=== PATIENT | male | born 1990 | race Two or more races ===

== ENCOUNTER 2018-07-25 12:46 | Inpatient (IN) | payer OTHER ==
[~2018-07-25] VITALS: Ht 170.2 cm; Wt 56.7 kg
[2018-07-25 12:55] VITALS: BP 132/90
[2018-07-25] MEDS ORDERED: SYMBICORT 16010.2 G1 IH (12:56)
[2018-07-25] MEDS ORDERED: OFEV100 MG PO (12:56)
[2018-07-25] MEDS ORDERED: VENTOLIN HFA18 GM INH (12:56)
[2018-07-25 13:20] LABS: ANION GAP 13 mmol/L (5-15); BASOPHILS % (AUTO) 0.5 % (0.0-2.0); BLOOD UREA NITROGEN 18 mg/dL (7-18); CALCIUM 9.7 MG/DL (8.5-10.1); CARBON DIOXIDE 23 MMOL/L (21-32); CHLORIDE 101 MMOL/L (98-107); CREATININE 1.3 MG/DL (0.55-1.30); EOSINOPHILS % (AUTO) 1.8 % (0.0-3.0); HEMATOCRIT 60.9 % (42.0-52.0); LYMPHOCYTES % (AUTO) 14.8 % (20.0-45.0); MEAN CORPUSCULAR VOLUME 90 FL (80-99); MONOCYTES % (AUTO) 6.1 % (1.0-10.0); NEUTROPHILS % (AUTO) 76.9 % (45.0-75.0); PLATELET COUNT 374 K/UL (150-450); POTASSIUM 4.3 MMOL/L (3.5-5.1); RED BLOOD COUNT 6.77 M/UL (4.70-6.10); RED CELL DISTRIBUTION WIDTH 12.5 % (11.6-14.8); SODIUM 137 MMOL/L (136-145); WHITE BLOOD COUNT 11.7 K/UL (4.8-10.8)
[2018-07-25 13:28] LABS: HEMOGLOBIN 20.4 G/DL (14.2-18.0)
[2018-07-25 13:34] LABS: ALANINE AMINOTRANSFERASE 40 U/L (12-78); ALBUMIN/GLOBULIN RATIO 0.6 (1.0-2.7); ALKALINE PHOSPHATASE 113 U/L (46-116); ASPARTATE AMINO TRANSFERASE 28 U/L (15-37); BILIRUBIN,TOTAL 0.8 MG/DL (0.2-1.0); CKMB 1.1 NG/ML (0.0-3.6); CREATINE KINASE 83 U/L (26-308)
[2018-07-25 14:30] VITALS: BP 110/83
[2018-07-25 14:32] LABS: APPEARANCE,URINE CLEAR; BILIRUBIN, URINE NEGATIVE (NEGATIVE); COLOR,URINE PALE YELLOW; GLUCOSE, URINE (UA) NEGATIVE (NEGATIVE); KETONES,URINE NEGATIVE (NEGATIVE); LEUKOCYTE ESTERASE ,URINE NEGATIVE (NEGATIVE); NITRITE,URINE NEGATIVE (NEGATIVE); PH,URINE 7 (4.5-8.0); PROTEIN,URINE 4+ (NEGATIVE); UROBILINOGEN,URINE NORMAL MG/DL (0.0-1.0)
--- NOTE | 2018-07-25 15:11 | Diagnostic Imaging Report ---
Indication: Shortness of breath Technique: XRAY Chest 1v Comparison: None Findings: Fibrotic changes in the bilateral apices as well as periphery of the left mid/upper lung and right lower lung. There is also fibrosis in the region of the right hilum. There is no significant pleural effusion. No pneumothorax. Size within normal limits. Abdominal shield in place. IMPRESSION: Extensive bilateral fibrotic changes, likely chronic. Difficult to assess for superimposed infection without prior radiographs for comparison and the possibility such as not excluded.. Clinical correlation/follow-up recommended. No evidence of pneumothorax.
--- NOTE | 2018-07-25 15:22 | Emergency Room Report ---
History of Present Illness General Chief Complaint: Dyspnea/Respdistress Source: Patient Present Illness HPI This patient was sent over from his primary care physician's office. 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 He presented to his primary care physician's office for ongoing workup for a lung transplant. He is going to see [facility] on August 08 to start the process for lung transplant. At baseline, he has oxygen at home. When he went in to his primary care physician's office he underwent an EKG and it showed a flutter. He was also very tachycardic and so he was sent over for further evaluation here. He states that he has had multiple syncopal episodes recently. He states that this typically occurs after he coughs. He most recently had a syncopal episode 4 days ago. He states these are getting more frequent. He also states that he gets exhausted easily and can barely do even short physical activities. He denies recent illness. He denies cough or congestion. He denies fever or chills. He has no other complaints. Allergies: Coded Allergies: No Known Allergies (Unverified , 07/25/18) Patient History Past Medical History: see triage record Past Surgical History: other - Cystic fibrosis, pulmonary fibrosis Social History: Denies: smoking, alcohol use, drug use Reviewed Nursing Documentation: PMH: Agreed; PSxH: Agreed Nursing Documentation-PM Past Medical History: No History, Except For Hx COPD: Yes - cystic fibrosis, PNA Review of Systems All Other Systems: negative except mentioned in HPI Physical Exam Vital Signs Date Time Temp Pulse Resp B/P (MAP) Pulse Ox O2 Delivery O2 Flow Rate FiO2 07/25/18 12:51 96.8 59 25 132/90 82 Nasal Cannula 4.0 Sp02 EP Interpretation: reviewed, normal General Appearance: no apparent distress, alert, GCS 15, non-toxic Head: normocephalic, atraumatic Eyes: bilateral eye normal inspection, bilateral eye PERRL ENT: hearing grossly normal, normal pharynx, no angioedema, normal voice Neck: full range of motion, supple/symm/no masses Respiratory: chest non-tender, lungs clear, normal breath sounds, no respiratory distress, no retraction, no accessory muscle use, speaking full sentences Cardiovascular #1: no edema, tachycardia Gastrointestinal: normal bowel sounds, non tender, soft, non-distended, no guarding, no rebound Rectal: deferred Musculoskeletal: back normal, gait/station normal, normal range of motion, non- tender Neurologic: alert, oriented x3, responsive, motor strength/tone normal, sensory intact, speech normal Psychiatric: judgement/insight normal, memory normal, mood/affect normal, no suicidal/homicidal ideation Skin: normal color, no rash, warm/dry, well hydrated Medical Decision Making Diagnostic Impression: Primary Impression: Tachycardia Additional Impressions: Dyspnea Pulmonary fibrosis Cystic fibrosis Syncope ER Course This patient had an arrhythmia and his primary care physician's office. He was found to have atrial flutter there. When he arrived here in the emergency Department he has a sinus tachycardia with a rate in the 110's. He does have nonspecific ST segment depressions in leads III and aVF on EKG. Laboratory workup did show polycythemia but a normal troponin. The patient checks history has obvious scarring and fibrosis. The patient will be admitted as he has had multiple syncopal episodes and could have intermittent arrhythmia. He is admitted for further evaluation by cardiology. Laboratory Tests Test 07/25/18 13:00 07/25/18 14:19 White Blood Count 11.7 K/UL (4.8-10.8) H Red Blood Count 6.77 M/UL (4.70-6.10) H Hemoglobin 20.4 G/DL (14.2-18.0) *H Hematocrit 60.9 % (42.0-52.0) H Mean Corpuscular Volume 90 FL (80-99) Mean Corpuscular Hemoglobin 30.1 PG (27.0-31.0) Mean Corpuscular Hemoglobin Concent 33.4 G/DL (32.0-36.0) Red Cell Distribution Width 12.5 % (11.6-14.8) Platelet Count 374 K/UL (150-450) Mean Platelet Volume 7.1 FL (6.5-10.1) Neutrophils (%) (Auto) 76.9 % (45.0-75.0) H Lymphocytes (%) (Auto) 14.8 % (20.0-45.0) L Monocytes (%) (Auto) 6.1 % (1.0-10.0) Eosinophils (%) (Auto) 1.8 % (0.0-3.0) Basophils (%) (Auto) 0.5 % (0.0-2.0) Prothrombin Time 10.9 SEC (9.30-11.50) Prothrombin Time INR 1.0 (0.9-1.1) PTT 30 SEC (23-33) Sodium Level 137 MMOL/L (136-145) Potassium Level 4.3 MMOL/L (3.5-5.1) Chloride Level 101 MMOL/L (98-107) Carbon Dioxide Level 23 MMOL/L (21-32) Anion Gap 13 mmol/L (5-15) Blood Urea Nitrogen 18 mg/dL (7-18) Creatinine 1.3 MG/DL (0.55-1.30) Estimate Glomerular Filtration Rate > 60 mL/min (>60) Glucose Level 121 MG/DL (74-106) H Calcium Level 9.7 MG/DL (8.5-10.1) Total Bilirubin 0.8 MG/DL (0.2-1.0) Aspartate Amino Transferase (AST) 28 U/L (15-37) Alanine Aminotransferase (ALT) 40 U/L (12-78) Alkaline Phosphatase 113 U/L (46-116) Total Creatine Kinase 83 U/L (26-308) Creatine Kinase MB 1.1 NG/ML (0.0-3.6) Creatine Kinase MB Relative Index 1.3 Troponin I 0.000 ng/mL (0.000-0.056) Total Protein 7.9 G/DL (6.4-8.2) Albumin 3.0 G/DL (3.4-5.0) L Globulin 4.9 g/dL Albumin/Globulin Ratio 0.6 (1.0-2.7) L Urine Color Pale yellow Urine Appearance Clear Urine pH 7 (4.5-8.0) Urine Specific [place] 1.010 (1.005-1.035) Urine Protein 4+ (NEGATIVE) H Urine Glucose (UA) Negative (NEGATIVE) Urine Ketones Negative (NEGATIVE) Urine Blood 4+ (NEGATIVE) H Urine Nitrite Negative (NEGATIVE) Urine Bilirubin Negative (NEGATIVE) Urine Urobilinogen Normal MG/DL (0.0-1.0) Urine Leukocyte Esterase Negative (NEGATIVE) Urine RBC 5-10 /HPF (0 - 0) H Urine WBC 0 /HPF (0 - 0) Urine Squamous Epithelial Cells Occasional /LPF Urine Bacteria Occasional /HPF (NONE) Urine Opiates Screen Negative (NEGATIVE) Urine Barbiturates Screen Negative (NEGATIVE) Phencyclidine (PCP) Screen Negative (NEGATIVE) Urine Amphetamines Screen Negative (NEGATIVE) Urine Benzodiazepines Screen Negative (NEGATIVE) Urine Cocaine Screen Negative (NEGATIVE) Urine Marijuana (THC) Screen Negative (NEGATIVE) EKG Diagnostic Results Rate: tachycardiac Rhythm: other - S.tachycardia ST Segments: other - ST segment depressions III, aVF Rhythm Strip Diag. Results EP Interpretation: yes Rate: 100's Rhythm: NSR, no PVC's, no ectopy Chest X-Ray Diagnostic Results Chest X-Ray Diagnostic Results : Chest X-Ray Ordered: Yes # of Views/Limited/Complete: 1 View Indication: Shortness of Breath EP Interpretation: Yes Interpretation: other - Reticular scarring c/w hx of pulmonary fibrosis Impression: No acute disease Electronically Signed by: Faye Parrish DO Last Vital Signs Date Time Temp Pulse Resp B/P (MAP) Pulse Ox O2 Delivery O2 Flow Rate FiO2 07/25/18 12:55 131 40 132/90 96 Simple Mask 6.0 07/25/18 12:51 96.8 Condition: Serious Referrals: Lowell Fletcher MD (PCP) Faye Parrish DO Jul 25, 2018 15:22
[2018-07-25 15:30] VITALS: BP 101/72
[2018-07-25 16:45] VITALS: BP 115/69
[2018-07-25] MEDS ORDERED: Milk of Magnesia 30ml Ud ORAL PRN (17:30)
[2018-07-25] MEDS ORDERED: OFEV150 MG PO (17:35)
[2018-07-25] MEDS ORDERED: Ipratropium 0.02% Inh Soln 2.5ml UD HHN PRN (18:30)
[2018-07-25] MEDS: Solu-MEDROL 125mg Inj IVP SCH (20:39)
[2018-07-25 21:00] VITALS: BP 108/79
[2018-07-25] MEDS: Heparin 5000 units/ml inj SUBQ SCH (21:00)
[2018-07-26] VITALS: BP 108/73
[2018-07-26 04:00] VITALS: BP 117/77
[2018-07-26 06:57] LABS: HEMATOCRIT 54.9 % (42.0-52.0); MEAN CORPUSCULAR VOLUME 92 FL (80-99); PLATELET COUNT 321 K/UL (150-450); RED CELL DISTRIBUTION WIDTH 12.5 % (11.6-14.8); WHITE BLOOD COUNT 8.9 K/UL (4.8-10.8)
[2018-07-26 07:34] LABS: HEMOGLOBIN 18.2 G/DL (14.2-18.0)
[2018-07-26 08:00] VITALS: BP 109/70
[2018-07-26] MEDS: Solu-MEDROL 125mg Inj IVP SCH ×2 (08:25→21:30)
[2018-07-26] MEDS: Heparin 5000 units/ml inj SUBQ SCH ×2 (08:26→21:31)
[2018-07-26] MEDS: Pantoprazole Inj IVP SCH (08:26)
--- NOTE | 2018-07-26 11:47 | Diagnostic Imaging Report ---
Indication: Abdominal pain Technique: Saenz-scale and duplex images of the upper abdomen were obtained. Doppler interrogation of the pancreatic and hepatic vessels Comparison: none Findings: Gallbladder is unremarkable, without stones, wall thickening, nor pericholecystic fluid. Sonographic Neely's sign is negative. Common bile duct measures 3 mm in diameter. No intrahepatic biliary ductal dilatation. Liver demonstrates normal echogenicity, no focal abnormality. Portal vein and hepatic veins are patent. Pancreas is unremarkable. Spleen is unremarkable. Left kidney measures 11.1 cm in length. Right kidney measures 11.1 cm length. Both kidneys demonstrate normal echogenicity. There is no hydronephrosis. No focal abnormality . Non-aneurysmal abdominal aorta . Impression: Negative
[2018-07-26 12:00] VITALS: BP 111/65
--- NOTE | 2018-07-26 12:56 | Diagnostic Imaging Report ---
Indication: Shortness of breath Technique: One view of the chest Comparison: 07/25/2018 Findings: Extensive interstitial fibrosis and volume loss is seen in the right lung apex. Extensive honeycombing is seen throughout the left upper and midlung, as well as of the right lung base. There is hyperinflation of the right midlung. Findings are unchanged. There is slight blunting of left costophrenic sulcus Impression: Extensive pulmonary fibrosis, unchanged over one day No definite superimposed acute process but difficult to completely exclude
[2018-07-26 16:00] VITALS: BP 110/69
--- NOTE | 2018-07-26 18:15 | History and Physical Report ---
DATE OF ADMISSION: 07/25/2018 REASON FOR ADMISSION: Shortness of breath, mostly hypoxemia. HISTORY OF PRESENT ILLNESS: This is a 28-year-old unfortunate male with end-stage pulmonary fibrosis, hypoxemia, and borderline hypertension. The patient presented to the office with significant respiratory distress. The patient also had atrial flutter in the office in sinus tachycardia. The patient was seen and evaluated and underwent imaging as well as further diagnostics. The patient is now admitted. Overnight, the patient appears to be somewhat better. The patient did have an ultrasound, which is essentially negative of the abdominal cavity. The patient also had a duplex, which is negative for DVT. The patient currently improved. Vital signs improved. The patient is no longer tachycardic. Oxygenation appears to be better. The patient has been using additional amounts of oxygen. The patient denies any sputum production. The patient denies any edema, but does not worsening debility. PAST MEDICAL HISTORY: Notable for end-stage pulmonary fibrosis, pulmonary hypertension, and mild obstructive lung disease. MEDICATIONS: Reviewed. ALLERGIES: Reviewed. SOCIAL HISTORY: Nonsmoker and nondrinker. The patient is currently disabled. PHYSICAL EXAMINATION: GENERAL: A well-developed male, improved. VITAL SIGNS: Now improved. HEENT: Fairly negative. NECK: Supple. No adenopathy. LUNGS: Crackles at both bases. Moderate air entry. CARDIAC: S1, S2. Regular rate and rhythm. ABDOMEN: Soft and nontender. EXTREMITIES: No edema. LABORATORY DATA: White cell count 8.9, hemoglobin 18.2, and hematocrit 54.9. The patient's chemistries otherwise noted and reviewed, fairly negative. Albumin 3. The urine toxicology screen negative. IMPRESSION: 1. Hypertension likely secondary to polycythemia. 2. End-stage pulmonary fibrosis. 3. Noted chronic hypoxemia. 4. Chronic respiratory failure. RECOMMENDATIONS: 1. Supportive care. 2. IV hydration. 3. Monitor clinically. 4. Hematological evaluation. Question need for phlebotomy, anticoagulation, and Solu-Medrol trial. 5. We will hope to see some mild improvement and discharge the patient to home. Lowell Fletcher M.D. DR: AQUILINO JOB#: [id number] CC:
[2018-07-26 20:00] VITALS: BP 118/76
[2018-07-27] VITALS: BP 105/74
[2018-07-27 04:00] VITALS: BP 118/58
[2018-07-27 08:00] VITALS: BP 109/65
--- NOTE | 2018-07-27 08:56 | General Progress Note ---
Assessment/Plan Assessment/Plan IMPRESSION: 1. Secondary polycythemia. 2. End-stage pulmonary fibrosis. 3. Noted chronic hypoxemia. 4. Chronic respiratory failure. 5. Pulmonary hypertension RECOMMENDATIONS: 1. Supportive care. 2. IV hydration. 3. Monitor clinically. 4. Hematological evaluation. Question need for phlebotomy, anticoagulation, and Solu-Medrol trial. 5. We will hope to see some mild improvement and discharge the patient to home. Subjective Allergies: Coded Allergies: No Known Allergies (Unverified , 07/25/18) Subjective overall improved on oxygen Objective Last 24 Hour Vital Signs Date Time Temp Pulse Resp B/P (MAP) Pulse Ox O2 Delivery O2 Flow Rate FiO2 07/27/18 08:40 76 18 97 Simple Mask 10.0 07/27/18 08:40 74 18 99 Simple Mask 10.0 07/27/18 08:00 97.9 54 20 109/65 (80) 98 07/27/18 06:49 94 Nasal Cannula 4.0 36 07/27/18 06:49 Nasal Cannula 4.0 36 07/27/18 04:00 97.2 89 18 118/58 (78) 98 07/27/18 04:00 80 07/27/18 00:00 104 07/27/18 00:00 97.2 95 18 105/74 (84) 94 07/26/18 21:00 Simple Mask 6.0 07/26/18 20:00 97.5 95 19 118/76 (90) 94 07/26/18 20:00 91 07/26/18 19:50 93 Nasal Cannula 4.0 36 07/26/18 19:49 Nasal Cannula 4.0 36 07/26/18 19:49 62 18 93 Nasal Cannula 4.0 36 07/26/18 19:48 62 18 93 Nasal Cannula 4.0 36 07/26/18 16:00 83 07/26/18 16:00 97.7 87 18 110/69 (83) 95 07/26/18 12:00 94 07/26/18 12:00 97.6 83 20 111/65 (80) 94 07/26/18 09:00 Simple Mask 6.0 Intake and Output 07/26/18 07/27/18 18:59 06:59 Intake Total 240 ml Balance 240 ml Intake Oral 240 ml # Voids 1 2 Labs Test 07/25/18 13:00 07/25/18 14:19 07/26/18 05:50 White Blood Count 11.7 K/UL (4.8-10.8) 8.9 K/UL (4.8-10.8) Red Blood Count 6.77 M/UL (4.70-6.10) 6.00 M/UL (4.70-6.10) Hemoglobin 20.4 G/DL (14.2-18.0) 18.2 G/DL (14.2-18.0) Hematocrit 60.9 % (42.0-52.0) 54.9 % (42.0-52.0) Mean Corpuscular Volume 90 FL (80-99) 92 FL (80-99) Mean Corpuscular Hemoglobin 30.1 PG (27.0-31.0) 30.4 PG (27.0-31.0) Mean Corpuscular Hemoglobin Concent 33.4 G/DL (32.0-36.0) 33.2 G/DL (32.0-36.0) Red Cell Distribution Width 12.5 % (11.6-14.8) 12.5 % (11.6-14.8) Platelet Count 374 K/UL (150-450) 321 K/UL (150-450) Mean Platelet Volume 7.1 FL (6.5-10.1) 7.3 FL (6.5-10.1) Neutrophils (%) (Auto) 76.9 % (45.0-75.0) % (45.0-75.0) Lymphocytes (%) (Auto) 14.8 % (20.0-45.0) % (20.0-45.0) Monocytes (%) (Auto) 6.1 % (1.0-10.0) % (1.0-10.0) Eosinophils (%) (Auto) 1.8 % (0.0-3.0) % (0.0-3.0) Basophils (%) (Auto) 0.5 % (0.0-2.0) % (0.0-2.0) Prothrombin Time 10.9 SEC (9.30-11.50) Prothromb Time International Ratio 1.0 (0.9-1.1) Activated Partial Thromboplast Time 30 SEC (23-33) Sodium Level 137 MMOL/L (136-145) Potassium Level 4.3 MMOL/L (3.5-5.1) Chloride Level 101 MMOL/L (98-107) Carbon Dioxide Level 23 MMOL/L (21-32) Anion Gap 13 mmol/L (5-15) Blood Urea Nitrogen 18 mg/dL (7-18) Creatinine 1.3 MG/DL (0.55-1.30) Estimat Glomerular Filtration Rate > 60 mL/min (>60) Glucose Level 121 MG/DL (74-106) Calcium Level 9.7 MG/DL (8.5-10.1) Total Bilirubin 0.8 MG/DL (0.2-1.0) Aspartate Amino Transf (AST/SGOT) 28 U/L (15-37) Alanine Aminotransferase (ALT/SGPT) 40 U/L (12-78) Alkaline Phosphatase 113 U/L (46-116) Total Creatine Kinase 83 U/L (26-308) Creatine Kinase MB 1.1 NG/ML (0.0-3.6) Creatine Kinase MB Relative Index 1.3 Troponin I 0.000 ng/mL (0.000-0.056) Total Protein 7.9 G/DL (6.4-8.2) Albumin 3.0 G/DL (3.4-5.0) Globulin 4.9 g/dL Albumin/Globulin Ratio 0.6 (1.0-2.7) Urine Color Pale yellow Urine Appearance Clear Urine pH 7 (4.5-8.0) Urine Specific [place] 1.010 (1.005-1.035) Urine Protein 4+ (NEGATIVE) Urine Glucose (UA) Negative (NEGATIVE) Urine Ketones Negative (NEGATIVE) Urine Blood 4+ (NEGATIVE) Urine Nitrite Negative (NEGATIVE) Urine Bilirubin Negative (NEGATIVE) Urine Urobilinogen Normal MG/DL (0.0-1.0) Urine Leukocyte Esterase Negative (NEGATIVE) Urine RBC 5-10 /HPF (0 - 0) Urine WBC 0 /HPF (0 - 0) Urine Squamous Epithelial Cells Occasional /LPF Urine Bacteria Occasional /HPF (NONE) Urine Opiates Screen Negative (NEGATIVE) Urine Barbiturates Screen Negative (NEGATIVE) Phencyclidine (PCP) Screen Negative (NEGATIVE) Urine Amphetamines Screen Negative (NEGATIVE) Urine Benzodiazepines Screen Negative (NEGATIVE) Urine Cocaine Screen Negative (NEGATIVE) Urine Marijuana (THC) Screen Negative (NEGATIVE) Differential Total Cells Counted 100 Neutrophils % (Manual) 89 % (45-75) Lymphocytes % (Manual) 9 % (20-45) Monocytes % (Manual) 2 % (1-10) Eosinophils % (Manual) 0 % (0-3) Basophils % (Manual) 0 % (0-2) Band Neutrophils 0 % (0-8) Platelet Estimate Adequate Platelet Morphology Normal Red Blood Cell Morphology Normal Height (Feet): 5 Height (Inches): 7.00 Weight (Pounds): 125 Objective WDWN NAD reduced breath sounds bilaterally without rhonchi or wheeze [id number] without MR +p2 NABS nontender no CCE nonfocal Lowell Fletcher MD Jul 27, 2018 08:56
[2018-07-27] MEDS: Pantoprazole Inj IVP SCH (09:11)
[2018-07-27] MEDS: Solu-MEDROL 125mg Inj IVP SCH (09:11)
[2018-07-27] MEDS: Heparin 5000 units/ml inj SUBQ SCH (09:19)
[2018-07-27 10:58] LABS: HEMATOCRIT 50.5 % (42.0-52.0); HEMOGLOBIN 16.7 G/DL (14.2-18.0); MEAN CORPUSCULAR VOLUME 91 FL (80-99); PLATELET COUNT 306 K/UL (150-450); RED BLOOD COUNT 5.55 M/UL (4.70-6.10); RED CELL DISTRIBUTION WIDTH 12.4 % (11.6-14.8); WHITE BLOOD COUNT 15.5 K/UL (4.8-10.8)
--- NOTE | 2018-07-27 11:05 | Consultation ---
Consult Note Consult Note HEMATOLOGY-ONCOLOGY CONSULTATION REFERRING PHYSICIAN: Lowell Fletcher REASON FOR CONSULT: Erythrocytosis DATE OF CONSULT: 07/27/2018 HISTORY OF PRESENT ILLNESS: This is a 28-year-old unfortunate male with end- stage pulmonary fibrosis, hypoxemia, and borderline hypertension. The patient presented with significant respiratory distress. The patient was seen and evaluated and underwent imaging as well as further diagnostics. The patient did have an ultrasound, which is essentially negative of the abdominal cavity. The patient also had a duplex, which is negative for DVT. Oxygenation appears to be better. Hematology service consulted for the evaluation of erythrocytosis. Labs and imaging have been reviewed. PAST MEDICAL HISTORY: Notable for end-stage pulmonary fibrosis, pulmonary hypertension, and mild obstructive lung disease. PAST SURGICAL HISTORY: Unknown FAMILY HISTORY: Noncontributory SOCIAL HISTORY: Nonsmoker and nondrinker. The patient is currently disabled. PHYSICAL EXAMINATION: GENERAL: A well-developed male, improved. VITAL SIGNS: Have been reviewed. HEENT: Fairly negative. NECK: Supple. No adenopathy. LUNGS: Crackles at both bases. Moderate air entry. CARDIAC: S1, S2. Regular rate and rhythm. ABDOMEN: Soft and nontender. EXTREMITIES: No edema. MEDICATIONS: Current meds have been reviewed LABORATORY DATA: White cell count 8.9, hemoglobin 18.2, and hematocrit 54.9. The patient's chemistries otherwise noted and reviewed, fairly negative. Albumin 3. The urine toxicology screen negative. IMAGIN/21: CXR --> Extensive pulmonary fibrosis ASSESSMENT AND RECOMMENDATIONS # Erythrocytosis. Multiple etiologies possible. R/O unruly, could also be related to dehydration --> Erythropoietin has been ordered --> O/P sleep study recommended r/o unruly --> JAK2 if no improvement in the next several days # Hypertension likely secondary to polycythemia. # End-stage pulmonary fibrosis. # Noted chronic hypoxemia. # Chronic respiratory failure. --> On face mask GREATLY APPRECIATE CONSULTATION. Ronan Ambrose MD Jul 27, 2018 11:05
[2018-07-27] MEDS ORDERED: ELIQUIS2.5 MG PO (11:40)
[2018-07-27 12:00] VITALS: BP 118/70
[2018-07-27] MEDS ORDERED: 1/2 NS 1000ml IV ONE (16:20)
--- NOTE | 2018-07-28 14:17 | Cardiology Report ---
APPROVED REPORT EKG Measurement Heart [id number] Sinus tachycardia Biatrial enlargement Right superior axis deviation Pulmonary disease pattern Right ventricular hypertrophy Nonspecific ST abnormality Abnormal QRS-T angle, consider primary T wave abnormality Abnormal ECG
--- NOTE | 2018-07-29 09:31 | Discharge Summary ---
Discharge Summary Discharge Summary _ DATE OF ADMISSION: 07/25/2018 DATE OF DISCHARGE: 07/27/2018 DISCHARGED BY: Dr. Fletcher REASON FOR ADMISSION: 28 years old male with past medical history of end-stage pulmonary fibrosis, pulmonary hypertension, mild obstructive lung disease, chronic hypoxemia, borderline hypertension, intially presented to the primary care physician office with significant respiratory distress. Patient was in process for lung transplant at [facility] , was scheduled for August 2018. Patient had oxygen at home. Upon evaluation in the office, patient underwent EKG which showed atrial flutter with tachycardia. Patient was sent to emergency room for further evaluation and management. Patient reported having multiple syncopal episodes recently. Upon evaluation vital signs revealed tachypnea and hypoxia , and patient required placement on high flow of oxygen . Laboratory workup revealed mild leukocytosis WBC 11.7. Hemoglobin 20.4, hematocrit 60.9. Chemistry was unremarkable. Albumin 3.0. Troponin was negative. ECG revealed sinus tachycardia woth pulmonary disease pattern. Urinalysis revealed evidence of UTI. Urine toxicology screen was negative. Chest x-ray revealed no evidence of pneumothorax, but showed extensive bilateral fibrotic changes, likely chronic. Abdominal ultrasound was negative. Patient admitted with diagnosis of chronic hypoxemic respiratory failure ,end- stage pulmonary fibrosis, polycythemia, pulmonary hypertension,. CONSULTANTS: production grader/oncologist Dr. Ambrose [facility] COURSE: Patient admitted to telemetry floor. Patient started on the IV hydration. Supplemental oxygen provided as needed to keep pulse oximetry above 92%. Pulmonary toilet was on standby as needed. Patient started on Symbicort. Steroid therapy was initiated. Venous duplex of bilateral lower extremities revealed no evidence of acute DVT. DVT /GI prophylaxis provided. Patient was closely monitored. Hematology consult was requested Curb Setter Helper seen and evaluated patient. According to production grader, multiple etiologies possible for erythrocytosis, possibly related to dehydration . Sleep study as outpatient recommended to rule out obstructive sleep apnea. Curb Setter Helper recommended to check JOS 2, if no improvement in the next several days. In two days with IV hydration , hemoglobin down to 16.7 ,hematocrit down to 50.5. Noted leukocytosis , likely reactive secondary to steroids. Anticoagulation with Xarelto initiated for atrial flutter. Heart rate was controlled. EKG in the hospital showed sinus tachycardia with pulmonary disease pattern , right ventricular hypertrophy and right superior axis deviation. Patient stabilized and was ready for discharge home . Patient had oxygen at home. Outpatient follow-up with [facility] for lung transplant. FINAL DIAGNOSES: End-stage pulmonary fibrosis Chronic hypoxemic respiratory failure Secondary polycythemia Pulmonary hypertension Atrial flutter with tachycardia DISCHARGE MEDICATIONS: See Medication Reconciliation list. DISCHARGE INSTRUCTIONS: Patient was discharged home. Outpatient follow-up with a primary care provider. Outpatient follow-up with [facility] for lung transplant. I have been assigned to dictate discharge summary for this account. I was not involved in the patient's management. Pamela Conroy NP Jul 29, 2018 09:31
--- NOTE | 2018-07-31 12:46 | Diagnostic Imaging Report ---
APPROVED REPORT CPT Code: 64850 Present Symptoms Comments: bilateral legs pain. BILATERAL: Imaging reveals a patent deep venous system bilaterally. There is no evidence of thrombus within the femoral, popliteal or tibial segments. The greater saphenous veins are also within normal limits. Doppler indicates normal spontaneous flow within these segments.
== END 2018-07-27 16:35 | disposition home or self-care (01) | DRG 197 ==
LOC: EMR 13:35 → 2E 15:03 → EDBEDREQ 16:10
DX: J84.10 Pulmonary fibrosis, unspecified (principal); J96.11 Chronic respiratory failure with hypoxia; I48.92 Unspecified atrial flutter; D75.1 Secondary polycythemia; I27.20 Pulmonary hypertension, unspecified
CPT/HCPCS: 36415; 71045; 76700; 80053; 80307; 81003; 82550; 82553; 84484; 85007; 85025; 85610; 85730; 93005; 93970; 94640; 94664; 94760; 96360; 99285